=== PATIENT | female | born 2000 | race American Indian/Alaskan Native ===

== ENCOUNTER 2018-04-08 11:22 | Emergency (ER) | payer SELFPAY ==
[2018-04-08 11:46] VITALS: BP 127/63
[2018-04-08 12:27] LABS: HCG Qualitative,Urine Negative (Negative)
== END 2018-04-08 12:27 | disposition left against medical advice (07) ==
LOC: ED 11:22
DX: M25.561 Pain in right knee (principal); Z53.21 Procedure and treatment not carried out due to patient leaving prior to being seen by health care provider
CPT/HCPCS: 81025

== ENCOUNTER 2018-04-13 16:23 | Emergency (ER) | payer SELFPAY ==
--- NOTE | 2018-04-13 17:46 | Emergency Department Report ---
ED Anxiety HPI <ASHLEY BAHENA - Last Filed: 04/13/18 21:48> - General Source: patient Mode of arrival: Ambulatory - History of Present Illness MD Complaint: anxiety -: This afternoon Symptoms: dyspnea, chest pain, extremity numbness Place: home Previous History of Same: Yes Severity: moderate Quality: improving Provoking factors: emotional stress, work/job stress Improves With: nothing Worsens With: nothing Associated symptoms: chest pain, shortness of breath <PAULINE FAIRCHILD - Last Filed: 04/14/18 11:38> - General Chief Complaint: Anxiety Stated Complaint: ANXIETY ATTACK Time Seen by Provider: 04/13/18 17:32 - History of Present Illness Initial Comments: 18-year-old female presents to the ED with complaints of possible anxiety attack. Patient states his been under a lot of stress recently due to the fact that she recently broke up with her boyfriend and has also been unable to work. Patient states today she began feeling short of breath, with associated chest pain, numbness of hands. States felt like her throat was closing and chest was tightening up. Patient states she thought it was an asthma attack but she wasn' t wheezing. Patient reports history of anxiety attacks in the past. Patient states breathing is better, but reports left pleuritic pain. Denies calf pain, leg swelling. (PAULINE FAIRCHILD) - Related Data Allergies/Adverse Reactions: Allergies Allergy/AdvReac Type Severity Reaction Status Date / Time No Known Allergies Allergy Unverified 04/08/18 11:46 ED Review of Systems Comment: All other systems reviewed and negative Constitutional: denies: fever Respiratory: shortness of breath Cardiovascular: chest pain Musculoskeletal: other (denies leg swelling) Neurological: paresthesias <PAULINE FAIRCHILD - Last Filed: 04/14/18 11:38> ROS: Stated complaint: ANXIETY ATTACK Other details as noted in HPI ED Past Medical Hx - Past Medical History Hx Asthma: Yes - Surgical History Additional Surgical History: wisdom x4,right wrist fx,left shoulder fx - Social History Smoking Status: Current Some Day Smoker Substance Use Type: Marijuana <PAULINE FAIRCHILD - Last Filed: 04/14/18 11:38> ED Physical Exam - General Limitations: No Limitations General appearance: alert, in no apparent distress - Head Head exam: Present: atraumatic, normocephalic - Eye Eye exam: Present: normal appearance - ENT ENT exam: Present: mucous membranes moist - Neck Neck exam: Present: normal inspection - Respiratory Respiratory exam: Present: normal lung sounds bilaterally. Absent: respiratory distress - Cardiovascular Cardiovascular Exam: Present: regular rate, normal rhythm - GI/Abdominal GI/Abdominal exam: Present: soft. Absent: tenderness - Extremities Exam Extremities exam: Present: other (currently wearing right knee brace, no edema or calf tenderness present) - Neurological Exam Neurological exam: Present: alert, oriented X3 - Psychiatric Psychiatric exam: Present: normal affect, normal mood - Skin Skin exam: Present: warm, dry, intact, normal color <DEVORAHTHEONIA Y. - Last Filed: 04/14/18 11:38> Vital Signs 04/13/18 04/13/18 16:54 21:54 Temperature 99.7 F H 98.5 F Pulse Rate 71 68 Respiratory 18 Rate Blood Pressure 132/64 Blood Pressure 112/68 [Left] O2 Sat by Pulse 99 98 Oximetry ED Medical Decision Making - Lab Data Result diagrams: 04/13/18 17:54 04/13/18 17:54 - Radiology Data Radiology results: report reviewed <ASHLEY BAHENA - Last Filed: 04/13/18 21:48> - Lab Data Result diagrams: 04/13/18 17:54 04/13/18 17:54 - EKG Data -: EKG Interpreted by [facility] EKG shows normal: sinus rhythm, axis, intervals, QRS complexes - EKG Data Interpretation: nonspecific ST-T wave madhavi, other (T wave inversions V2, V3, III) - Differential Diagnosis anxiety, pneumothorax, PE, ACS <DEVORAHTHELTONIA Y. - Last Filed: 04/14/18 11:38> - Radiology Data FINDINGS: Cardiac and mediastinal silhouette within normal limits. Lungs are normally expanded and grossly clear. No apparent pleural effusion or pneumothorax. Mild levoconvex curvature of thoracic spine. IMPRESSION: 1. No acute consolidation. Transcribed By: [facility] Dictated By: CANDY LANGE MD Electronically Authenticated By: CANDY LANGE MD Signed Date/Time: 04/13/181953 DD/ 53 TD/TT: 04/13/181953 (ASHLEY BAHENA) - Medical Decision Making 18 yo F presented to ED w/ chest pain, shortness of breath. Pt has been under a lot of stress due to issues with her job, her family, and recent break-up w/ boyfriend. Workup unremarkable. CXR negative, EKG and troponin nml, D-dimer negative. Likely anxiety attack, as pt has prior history. Will d/c with mental health follow-up. (PAULINE FAIRCHILD) Critical care attestation.: If time is entered above; I have spent that time in minutes in the direct care of this critically ill patient, excluding procedure time. ED Disposition <ASHLEY BAHENA - Last Filed: 04/13/18 21:48> Is pt being admited?: No <PAULINE FAIRCHILD - Last Filed: 04/14/18 11:38> Clinical Impression: Anxiety Disposition: DC-01 TO HOME OR SELFCARE Condition: Stable Instructions: Anxiety (ED) Referrals: PRIMARY CARE, [Primary Care Provider] - 3-5 Days [facility] [Outside] - 3-5 Days [facility] [Outside] - 3-5 Days
[2018-04-13] MEDS ORDERED: TORADOL IV ONE (17:48)
[2018-04-13 18:23] LABS: Basophils # (Auto) 0.1 K/mm3 (0.0-0.1); Basophils % (Auto) 1.2 % (0.0-1.8); Eosinophils # (Auto) 0.3 K/mm3 (0.0-0.4); Eosinophils % (Auto) 4.1 % (0.0-4.3); Hematocrit 41.4 % (30.3-42.9); Hemoglobin 13.9 gm/dl (10.1-14.3); Lymphocytes # (Auto) 2.9 K/mm3 (1.2-5.4); Lymphocytes % (Auto) 37.3 % (13.4-35.0); Mean Corpuscular HGB Conc 34 % (30-34); Mean Corpuscular Hemoglobin 31 pg (28-32); Mean Corpuscular Volume 91 fl (79-97); Monocytes # (Auto) 0.6 K/mm3 (0.0-0.8); Monocytes % (Auto) 7.7 % (0.0-7.3); Platelet Count 272 K/mm3 (140-440); Red Blood Count 4.53 M/mm3 (3.65-5.03); Red Cell Distribution Width 13.5 % (13.2-15.2)
[2018-04-13 18:28] LABS: INR 1.07 (0.87-1.13)
[2018-04-13 18:29] LABS: Partial Thromboplastin Time 28.2 Sec. (24.2-36.6)
[2018-04-13 18:39] LABS: BUN/Creatinine Ratio 10; Blood Urea Nitrogen 8 mg/dL (7-17); Calcium 9.6 mg/dL (8.4-10.2); Hemolysis Index 5
--- NOTE | 2018-04-13 21:35 | XRay Report ---
FINAL REPORT EXAM: XR CHEST ROUTINE 2V HISTORY: cough TECHNIQUE: Frontal and lateral chest x-ray. PRIORS: None. FINDINGS: Cardiac and mediastinal silhouette within normal limits. Lungs are normally expanded and grossly clear. No apparent pleural effusion or pneumothorax. Mild levoconvex curvature of thoracic spine. IMPRESSION: 1. No acute consolidation.
[2018-04-13 21:57] VITALS: BP 112/68
== END 2018-04-13 21:54 | disposition home or self-care (01) ==
LOC: ED 16:23
DX: F41.9 Anxiety disorder, unspecified (principal); R07.89 Other chest pain; J45.909 Unspecified asthma, uncomplicated; F17.200 Nicotine dependence, unspecified, uncomplicated; F12.10 Cannabis abuse, uncomplicated
CPT/HCPCS: 36415; 71046; 80048; 84484; 84703; 85025; 85379; 85610; 85730; 93005; 93010; 96374; 99284; J1885

== ENCOUNTER 2020-04-11 11:55 | Emergency (ER) | payer SELFPAY ==
[2020-04-11 12:04] VITALS: BP 120/59
--- NOTE | 2020-04-11 12:57 | Emergency Department Report ---
Chief Complaint: High BP Stated Complaint: HBP Time Seen by Provider: 04/11/20 12:43 - HPI History of Present Illness: Patient is a 20-year-old female presents emergency room with complaints of possible elevated blood pressure. She states that yesterday she was at work and was having back pain. She states that she has chronic back pain due to a "slipped disc." She states that she was having pain and got overwhelmed. She states that she also has a history of anxiety. she has no SI/HI. She states that the transformation analyst evaluated her and advised that her blood pressure was elevated. She did not have her blood pressure repeated after she calmed down. She presents today for evaluation of her blood pressure. In the emergency department her blood pressure is 120/59. She is ambulatory without difficulty. She does not report any fever, headache, vision changes, bowel or bladder incontinence, fall, injury. Vitals are normal On exam: Non toxic appearing, no acute distress atraumatic, normocephalic normal appearance of the eyes, PERRL, EOMI, no periorbital edema or ecchymosis moist mucus membranes regular heart rate and rhythm, no gallops, no rubs, no murmurs breath sounds are clear bilaterally, no w/r/r, no respiratory distress, no accessory muscle use Mild bilateral paraspinal lumbar muscular tenderness palpation, no midline C- spine, T-spine, L-spine tenderness palpation, no step-offs, no deformities A&O x4, no focal neuro deficit, she is ambulatory without difficulty skin is warm, dry, intact Patient presents for blood pressure evaluation her BP is normal in the ED she was not having any BP related symptoms she has chronic back pain which she attributes to a "slipped disc" she has had no acute fall or injury, no trauma she is ambulating without difficulty she has no focal neuro deficit advised pt Your blood pressure is normal during today's visit. You may alternate Tylenol or ibuprofen as needed for pain. May use ice pack, heating pad, rest, Epson salt bath. Follow-up with a primary care doctor. Follow-up with a spine doctor. Return to emergency room for any new or worsening symptoms. medical screening exam performed and there is no threat to life or limb at this time - Exam Vital Signs: Vital Signs 04/11/20 12:02 Temperature 98.2 F Pulse Rate 89 Respiratory 20 Rate Blood Pressure 120/59 O2 Sat by Pulse 98 Oximetry MSE screening note: Focused history and physical exam performed. ED Disposition for MSE Clinical Impression: Encounter for medical screening examination Disposition: MED SCREENING EXAM-LEFT Is pt being admited?: No Does the pt Need Aspirin: No Condition: Stable Additional Instructions: Your blood pressure is normal during today's visit. You may alternate Tylenol or ibuprofen as needed for pain. May use ice pack, heating pad, rest, Epson salt bath. Follow-up with a primary care doctor. Follow-up with a spine doctor. Return to emergency room for any new or worsening symptoms. Referrals: EITAN HERNANDEZ MD [Staff Physician] - 2-3 Days [facility] [Provider Group] - 2-3 Days [facility], [LAB/CONTRACT] - 2-3 Days [facility] [Provider Group] - 2-3 Days JAZZ FRANKLIN II, MD [Staff Physician] - 2-3 Days Time of Disposition: 12:56 Print Language: URDU
== END 2020-04-11 13:06 | disposition left against medical advice (07) ==
LOC: ED 11:55
DX: I10 Essential (primary) hypertension (principal); Z53.21 Procedure and treatment not carried out due to patient leaving prior to being seen by health care provider